=== PATIENT | female | born 1995 | race Caucasian/White ===

== ENCOUNTER 2021-05-01 14:19 | Emergency (ER) | payer MEDICAID ==
[~2021-05-01] VITALS: Ht 162.6 cm; Wt 60.8 kg
--- NOTE | 2021-05-01 14:30 | NUR ---
Pending MD, evaluation. Patient ambulatory alert and oriented x4, complaints of dizziness, nausea, headache 04/15 started today. History of head injury yesterday. Patient not in distress.
--- NOTE | 2021-05-01 14:39 | NUR ---
MD at bedside, medical screening in process.
[2021-05-01] MEDS ORDERED: ACETAMINOPHEN 325 MG TABLET PO ONE (14:45)
[2021-05-01] MEDS ORDERED: ACET-2154 PO (14:46)
[2021-05-01 14:55] VITALS: BP 112/80
[2021-05-01] MEDS ORDERED: ACETAMINOPHEN 325 MG TABLET ONE (14:55)
--- NOTE | 2021-05-01 14:56 | NUR ---
Patient discharged to home in stable condition. Written and verbal after care instructions given. Patient verbalizes understanding of instructions. Stressed follow up or return to ER for worsening s/s.
== END 2021-05-01 14:57 | disposition home or self-care (01) ==
LOC: ER 14:27
DX: S06.0X0A Concussion without loss of consciousness, initial encounter (principal); W22.09XA Striking against other stationary object, initial encounter; Y92.89 Other specified places as the place of occurrence of the external cause; J45.909 Unspecified asthma, uncomplicated
CPT/HCPCS: A4663